=== PATIENT | male | born 1970 | race Two or more races ===

== ENCOUNTER 2018-01-09 12:49 | Emergency (ER) | payer OTHER ==
[~2018-01-09] VITALS: Ht 172.7 cm; Wt 90.7 kg
[2018-01-09 12:55] VITALS: BP 124/81
[2018-01-09] MEDS ORDERED: ACETAMINOPHEN ES 500 MG TABLET ONE (13:56)
[2018-01-09] MEDS ORDERED: ACETAMINOPHEN 325 MG TABLET PO ONE (14:00)
== END 2018-01-09 14:19 | disposition home or self-care (01) ==
LOC: ER 12:51
DX: S63.591A Other specified sprain of right wrist, initial encounter (principal); I10 Essential (primary) hypertension; E11.9 Type 2 diabetes mellitus without complications; Z95.818 Presence of other cardiac implants and grafts; X50.9XXA Other and unspecified overexertion or strenuous movements or postures, initial encounter; Y93.89 Activity, other specified; Y92.89 Other specified places as the place of occurrence of the external cause; Y99.8 Other external cause status
CPT/HCPCS: 29125; 73110; 73130; 99284; A4606; Z7610